=== PATIENT | female | born 1980 | race Caucasian/White ===

== ENCOUNTER 2022-03-28 11:15 | Outpatient (REF) | payer MEDICAID, SELFPAY ==
--- NOTE | ~2022-03-28 | CT_ITS ---
EXAMINATION: CT ABDOMEN AND PELVIS WITHOUT CONTRAST CLINICAL INFORMATION: Pelvic and perineal pain. COMPARISON: None. TECHNIQUE: Multidetector volumetric imaging was performed from the superior aspect of the liver through the pubic symphysis. Sagittal and coronal reformatted images were obtained on the technologist's workstation. This CT examination was performed using dose optimization techniques as appropriate, variously including the following: *Automated exposure control *Adjustment of mA and/or kV according to patient size (this includes techniques or standardized protocols for targeted exams where dose is matched to indication/reason for exam; i.e. extremities or head) *Use of iterative reconstruction technique DLP: 754 mGy-cm FINDINGS: LUNG BASES: The heart size is normal. There is a right lower lobe airspace consolidation. LIVER, GALLBLADDER, AND BILIARY TREE: The liver is normal in size, shape, and attenuation. No focal hepatic lesion or biliary ductal dilatation is present. The gallbladder has been surgically removed. PANCREAS: Unremarkable. SPLEEN: Unremarkable. ADRENAL GLANDS: Unremarkable. KIDNEYS AND URETERS: The kidneys are normal in size, shape, and attenuation. No hydronephrosis, hydroureter, or calculi seen. No perinephric stranding. BLADDER: Bladder is decompressed. GASTROINTESTINAL TRACT: There is scattered stool and gas seen throughout the colon without significant distention. The small bowel loops are normal caliber. Appendix is not visualized. ABDOMINAL WALL: No significant hernia is appreciated. LYMPH NODES: There are numerous mesenteric moderate-sized lymph nodes. The largest lymph node in the right mesentery measures 1.4 cm in maximum length. Also visualized are small retroperitoneal shotty lymph nodes. VASCULAR: Unremarkable. PELVIC VISCERA: The uterus is anteverted and appears unremarkable. There is a low-lying IUD within the uterine segment/cervix. Several phleboliths are seen in bilateral adnexa. No free fluid seen. No adnexal mass or abnormal pelvic lymph nodes. OSSEOUS STRUCTURES: There are degenerative disc changes with vacuum disc phenomena L4-L5 disc levels. Mild loss of L3-L4, L1-L2 and lower dorsal spine disc levels are noted with minimal ventral spondylosis. CT/CT abdomen pelvis wo con IMPRESSION: Diffuse abnormal-appearing mesenteric lymph nodes. Unknown etiology. Anterior uterus with a low-lying IUD in the lower uterine/cervical segment. This could be causing perineal pain. Minimal constipation. Fleischner guidelines were followed.
== END 2022-03-28 11:16 | disposition home or self-care (01) ==
LOC: HO.CT 11:15
PROVIDERS: Absent Provider Family Medicine; PCP Family Medicine; Visit Provider Emergency Medicine
DX: R10.2 Pelvic and perineal pain (principal); R31.29 Other microscopic hematuria
CPT/HCPCS: 74176

== ENCOUNTER 2022-04-01 12:12 | Outpatient (REF) | payer MEDICAID, SELFPAY ==
[2022-04-01 12:23] LABS: MANUAL DIFF FLAG NO
[2022-04-01 13:05] LABS: Basophils Percent Auto 0.5 % (0-2); Eosinophils Absolute Auto 0.2 X10*3/uL (0.0-0.4); Eosinophils Percent Auto 3.9 % (0-4); Hematocrit 40.8 % (37.0-47.0); Hemoglobin 13.4 g/dl (12.0-16.0); Imm Gran Abs Auto 0.02 X10*3/uL (0.00-0.03); Imm Gran Pct Auto 0.3 % (0.0-0.4); Lymphocytes Absolute Auto 1.8 X10*3/uL (1.2-4.9); Lymphocytes Percent Auto 30.2 % (20-40); Mean Corpuscular HGB Conc 32.8 g/dl (31.0-35.0); Mean Corpuscular Hemoglobin 28.8 pg (27.0-33.0); Mean Corpuscular Volume 87.7 fL (80.0-98.0); Mean Platelet Volume 8.8 fL (9.4-12.3); Monocytes Absolute Auto 0.3 X10*3/uL (0.1-1.2); Monocytes Percent Auto 5.5 % (2-11); Neutrophils Absolute Auto 3.5 x10*3/uL (2.0-8.3); Neutrophils Percent Auto 59.6 % (45-73); Platelet Count 406 X10*3/uL (160-400); Red Blood Count 4.65 X10*6/uL (4.20-5.50); Red Cell Distribution Width 13.1 % (11.0-16.0); White Blood Count 5.9 X10*3/uL (4.8-10.8)
[2022-04-01 13:50] LABS: Alanine Aminotransferase 92 U/L (0-31); Albumin Level 4.5 g/dL (3.5-5.0); Alkaline Phosphatase 97 U/L (39-117); Anion Gap 15 (12-20); Aspartate Amino Transferase 63 U/L (5-31); Bilirubin Total 0.6 mg/dL (0.0-1.0); Blood Urea Nitrogen 13 mg/dL (9-16); Calcium 9.7 mg/dL (8.4-10.2); Carbon Dioxide 23 mmol/L (22-29); Chloride 106 mmol/L (96-108); Estimated Glomerular Filt Rate > 60; Glucose Random 119 mg/dL (60-115); Potassium 3.9 mmol/L (3.3-5.1); Sodium 140 mmol/L (135-145); Total Protein 7.9 g/dL (6.5-8.0)
[2022-04-01 13:53] LABS: TSH reflex Free T4 1.85 uIU/mL (0.32-4.0)
[2022-04-01 13:59] LABS: Lactate Dehydrogenase 199 U/L (122-220)
[2022-04-02 04:59] LABS: HIV AB/AG Nonreactive (Nonreactive); HIV Num 1 0.08 S/CO (0.00-0.99)
== END 2022-04-01 12:13 | disposition home or self-care (01) ==
LOC: HO.LAB 12:12
PROVIDERS: PCP Family Medicine; Visit Provider Family Medicine
DX: Z11.4 Encounter for screening for human immunodeficiency virus [HIV] (principal); D64.9 Anemia, unspecified; R59.1 Generalized enlarged lymph nodes; R93.89 Abnormal findings on diagnostic imaging of other specified body structures
CPT/HCPCS: 36415; 80053; 83615; 84443; 85025; 87389

== ENCOUNTER 2022-04-17 08:17 | Outpatient (REF) | payer MEDICAID, SELFPAY ==
--- NOTE | ~2022-04-17 | CT_ITS ---
EXAMINATION: CT CHEST WITH CONTRAST CLINICAL INFORMATION: Mesenteric adenopathy. Check for adenopathy in the chest. COMPARISON: CT of the abdomen March 2022 TECHNIQUE: Multidetector volumetric CT imaging of the chest was obtained after the administration of 85 mL of Omnipaque 350 intravenous contrast without immediate adverse reactions. Axial MIP volume rendering provided. Sagittal and coronal reformatted images were obtained. This CT examination was performed using dose optimization techniques as appropriate, variously including the following: *Automated exposure control *Adjustment of mA and/or kV according to patient size (this includes techniques or standardized protocols for targeted exams where dose is matched to indication/reason for exam; i.e. extremities or head) *Use of iterative reconstruction technique DLP: 252 mGy-cm FINDINGS: LUNGS: There is a 4 mm peripheral or subpleural left lower lobe nodule axial image 113 series 7. There is a 2 mm peripheral or subpleural right lower lobe nodule axial image 112 series 7. There is a 3 mm peripheral or subpleural right lower lobe nodule axial image 143 series 7. There is a 3 mm peripheral or subpleural right lower lobe nodule axial image 146 series 7. There is question of a 3 mm left lower lobe nodule axial image 163 series 7. The lungs are otherwise clear. MEDIASTINUM: There is no hilar or mediastinal lymphadenopathy. There is no internal mammary lymphadenopathy. The mediastinum is normal. PLEURA: There is no pleural effusion. No pleural mass or thickening. AXILLA: There are small bilateral axillary lymph nodes. No enlarged axillary lymph nodes or chest wall mass is seen. UPPER ABDOMEN: The gallbladder is been removed. OSSEOUS STRUCTURES: There are mild degenerative changes of the spine. CT/CT chest w con IMPRESSION: Small bilateral axillary lymph nodes. No other adenopathy seen in the chest. Small pulmonary nodules. According to the UPDATED 2017 Fleischner Society recommendations, the advised follow-up imaging for less than 6 mm solid nodule: Low risk, no chest CT follow-up and high risk, optional chest CT follow-up in one year. Fleischner guidelines were followed.
[2022-04-17] MEDS: iohexoL 350 MG/ML 100 ML INFUS..BTL IV (09:11)
== END 2022-04-17 08:18 | disposition home or self-care (01) ==
LOC: HO.CT 08:17
PROVIDERS: PCP Family Medicine; Visit Provider Internal Medicine Medical Oncology
DX: R59.0 Localized enlarged lymph nodes (principal)
CPT/HCPCS: 71260; Q9967

== ENCOUNTER 2022-04-18 10:26 | Outpatient (REF) | payer MEDICAID, SELFPAY | END 2022-04-18 10:27 | disposition home or self-care (01) | LOC: HO.MAMMO 10:26 | PROVIDERS: PCP Family Medicine; Visit Provider Family Medicine | DX: Z13.89 Encounter for screening for other disorder (principal) ==

== ENCOUNTER 2022-07-03 08:25 | Outpatient (REF) | payer MEDICAID, SELFPAY ==
--- NOTE | ~2022-07-03 | CT_ITS ---
EXAMINATION: CT ABDOMEN AND PELVIS WITH CONTRAST CLINICAL INFORMATION: Follow-up mesenteric lymphadenopathy COMPARISON: Previous CT of the abdomen and pelvis March 2022 TECHNIQUE: Multidetector volumetric images were obtained from the superior aspect of the liver through the pubic symphysis following administration 100 mL of Omnipaque 350 intravenous contrast. Sagittal and coronal reformatted images were obtained on the technologist's workstation. Oral contrast: Yes This CT examination was performed using dose optimization techniques as appropriate, variously including the following: *Automated exposure control *Adjustment of mA and/or kV according to patient size (this includes techniques or standardized protocols for targeted exams where dose is matched to indication/reason for exam; i.e. extremities or head) *Use of iterative reconstruction technique DLP: 686 mGy-cm FINDINGS: LUNG BASES: The previously identified right lower lobe pneumonia has resolved. LIVER, GALLBLADDER, AND BILIARY TREE: The liver is normal in size, shape, and attenuation. No focal hepatic lesion or biliary ductal dilatation is present. The gallbladder is unremarkable with no evidence of radiopaque gallstones, gallbladder wall thickening, or obvious pericholecystic inflammatory changes. PANCREAS: Unremarkable. SPLEEN: Unremarkable. ADRENAL GLANDS: Unremarkable. KIDNEYS AND URETERS: The kidneys are normal in size, shape, and attenuation. No hydronephrosis, hydroureter, or calculi seen. No perinephric stranding. BLADDER: Unremarkable. GASTROINTESTINAL TRACT: The small and large bowel are unremarkable. The appendix is unremarkable. ABDOMINAL WALL: No significant hernia is appreciated. LYMPH NODES: There is lymphadenopathy seen in the small bowel mesentery. Larger lymph nodes appear slightly decreased in size from March 2022. Largest lymph node measures 8 mm in short axis axial image 43 series 3 compared to 1 cm previous exam. No new adenopathy. No ascites. VASCULAR: Unremarkable. PELVIC VISCERA: The IUD is been removed. Uterus and adnexa are unremarkable. OSSEOUS STRUCTURES: There are degenerative changes of the lower lumbar spine. CT/CT abdomen pelvis w IV con IMPRESSION: Interval decrease in size in the larger small bowel mesentery lymph nodes. Resolved right lower lobe pneumonia. Fleischner guidelines were followed.
[2022-07-03] MEDS: iohexoL 350 MG/ML 100 ML INFUS..BTL IV (11:14)
[2022-07-03] MEDS: Barium Sulfate Oral (Berry) 450 ML ORAL.SUSP 900 ML PO (11:15)
== END 2022-07-03 08:26 | disposition home or self-care (01) ==
LOC: HO.CT 08:25
PROVIDERS: PCP Family Medicine; Visit Provider Internal Medicine Medical Oncology
DX: R59.0 Localized enlarged lymph nodes (principal)
CPT/HCPCS: 74177; Q9967

== ENCOUNTER 2022-07-18 10:37 | Outpatient (REF) | payer MEDICAID, SELFPAY ==
--- NOTE | ~2022-07-18 | MM_ITS ---
EXAMINATION: MM SCREENING DIGITAL BREAST TOMOSYNTHESIS, BILATERAL CLINICAL INFORMATION: Screening. Asymptomatic. The lifetime risk of breast cancer based on the Tyrer-Cuzick Model is 8%. COMPARISON: Outside mammography: 07/16/2021, 07/11/2020 ([place]) TECHNIQUE: Digital breast tomosynthesis is performed in both the craniocaudal and mediolateral oblique views along with computer-aided detection (CAD). Synthesized 2D images are generated from the tomosynthesis. FINDINGS: There are scattered areas of fibroglandular density (ACR BI-RADS breast composition Category b). There are no significant masses, abnormal calcifications, or other abnormalities. Parenchymal pattern is similar to prior outside exams. No developing density or architectural abnormality. The axilla and skin contours are unremarkable. MM/MM tomosynthesis screening BI IMPRESSION: No mammographic evidence of malignancy. ASSESSMENT: BI-RADS 1: Negative RECOMMENDATION: Routine annual mammography screening. This patient's information was entered into a reminder system with a target due date for their next mammogram.
== END 2022-07-18 10:38 | disposition home or self-care (01) ==
LOC: HO.MAMMO 10:37
PROVIDERS: Visit Provider Family Medicine
DX: Z12.31 Encounter for screening mammogram for malignant neoplasm of breast (principal)
CPT/HCPCS: 77063; 77067

== ENCOUNTER 2023-02-27 11:24 | Outpatient (REF) | payer MEDICAID, SELFPAY ==
--- NOTE | ~2023-02-27 | XR_ITS ---
EXAMINATION: XR CHEST CLINICAL INFORMATION: Chest discomfort COMPARISON: Previous chest CT from 2021 TECHNIQUE: 2 views of the chest were obtained. FINDINGS: No significant abnormality is noted involving the heart, lungs, mediastinum, bony thorax or soft tissues. Mild degenerative changes of the spine. XR/XR chest 2V IMPRESSION: No evidence for acute disease in the chest.
== END 2023-02-27 11:25 | disposition home or self-care (01) ==
LOC: HO.XRAY 11:24
PROVIDERS: PCP Family Medicine; Visit Provider Family Medicine
DX: R07.89 Other chest pain (principal)
CPT/HCPCS: 71046

== ENCOUNTER 2023-08-16 10:11 | Outpatient (REF) | payer MEDICAID, SELFPAY | END 2023-08-16 10:12 | disposition home or self-care (01) | LOC: HO.MAMMO 10:11 | PROVIDERS: PCP Family Medicine; Visit Provider Family Medicine | DX: Z12.31 Encounter for screening mammogram for malignant neoplasm of breast (principal) | CPT/HCPCS: 77063; 77067 ==

== ENCOUNTER → 2023-08-16 10:30 | Outpatient (BNV) | payer MEDICAID, SELFPAY | PROVIDERS: PCP Family Medicine; Visit Provider Radiology Diagnostic Radiology | DX: Z12.31 Encounter for screening mammogram for malignant neoplasm of breast (principal) | CPT/HCPCS: 77063; 77067 ==

== ENCOUNTER 2024-08-21 10:12 | Outpatient (REF) | payer MEDICAID, SELFPAY ==
--- NOTE | ~2024-08-21 | MM_ITS ---
EXAMINATION: MM SCREENING DIGITAL BREAST TOMOSYNTHESIS, BILATERAL CLINICAL INFORMATION: Screening. Asymptomatic. COMPARISON: Mammography: Comparison is made with available priors TECHNIQUE: Digital breast mammography with tomosynthesis is performed in both the craniocaudal and mediolateral oblique views along with computer-aided detection (CAD). FINDINGS: There are scattered areas of fibroglandular density (ACR BI-RADS breast composition Category b). There are no significant masses, abnormal calcifications, or other abnormalities. MM/MM tomosynthesis screening BI IMPRESSION: No mammographic evidence of malignancy. ASSESSMENT: BI-RADS BI-RADS 1 - Negative RECOMMENDATION: Routine annual mammography screening. 1 year F/U This examination should not preclude the clinical evaluation of a suspicious palpable abnormality. This patient's information was entered into a reminder system with a target due date for their next mammogram. Electronically signed by: Mary Lou Becker DO 08/31/2024 08:48 AM MELISA
== END 2024-08-21 10:13 | disposition home or self-care (01) ==
LOC: HO.MAMMO 10:12
PROVIDERS: PCP Family Medicine; Visit Provider Family Medicine
DX: Z12.31 Encounter for screening mammogram for malignant neoplasm of breast (principal)
CPT/HCPCS: 77063; 77067

== ENCOUNTER → 2024-08-21 10:15 | Outpatient (BNV) | payer MEDICAID, SELFPAY | PROVIDERS: PCP Family Medicine; Visit Provider Internal Medicine | DX: Z12.31 Encounter for screening mammogram for malignant neoplasm of breast (principal) | CPT/HCPCS: 77063; 77067 ==

== ENCOUNTER 2025-07-13 11:15 | Outpatient (REF) | payer MEDICAID, SELFPAY ==
[2025-07-13 13:30] LABS: Hematocrit 36.4 % (37.0-47.0); Hemoglobin 11.4 g/dl (12.0-16.0); Mean Corpuscular HGB Conc 31.3 g/dl (31.0-35.0); Mean Corpuscular Hemoglobin 26.5 pg (27.0-33.0); Mean Corpuscular Volume 84.5 fL (80.0-98.0); NRBC Abs Auto 0.000 X10*3/uL (0.0-0.012); NRBC Pct Auto 0.0 /100WBC (0.0-0.2); Platelet Count 359 X10*3/uL (160-400); Red Blood Count 4.31 X10*6/uL (4.20-5.50); White Blood Count 6.9 X10*3/uL (4.8-10.8)
[2025-07-13 13:51] LABS: Alanine Aminotransferase 22 U/L (0-31); Albumin Level 4.3 g/dL (3.5-5.0); Alkaline Phosphatase 81 U/L (39-117); Anion Gap 10 (12-20); Aspartate Amino Transferase 31 U/L (5-31); Blood Urea Nitrogen 12 mg/dL (9-16); Calcium 9.5 mg/dL (8.4-10.2); Carbon Dioxide 27 mmol/L (22-29); Chloride 109 mmol/L (96-108); Cholesterol 231 mg/dL (<200); Estimated Glomerular Filt Rate > 60; HDL Cholesterol 42 mg/dL (>40); Potassium 4.6 mmol/L (3.3-5.1); Sodium 141 mmol/L (135-145); Total Protein 7.6 g/dL (6.5-8.0); Triglycerides 121 mg/dL (<150)
--- OUTSIDE RECORDS SUMMARY | 2025-07-13 14:27 | XMS_ITS | Encounter Summary ---
Author Organization [employer] Address [address] [facility] 7 [place] [address] Care Team Providers Care Desk Clerk Name Role Phone Sugey Mosley MD Primary Care Provider [phone]- [phone] Reason for Visit * Reason Onset Date Comments Appointment Request 03/16/2025 Encounter Details Date Type Department Care Team ([facility] st Contact Info) Description 03/16/2025 Telephone [facility] [address] [place], [place] [phone] Sugey Mosley MD [address] [place] [address] Appointment Request Social History Tobacco Use Types Packs/Day Years Used Date Smoking Tobacco: Never Smokeless Tobacco: Never Depression Answer Date Recorded Patient Health Questionnaire-9 Score 0 02/27/2023 Housing Stability Answer Date Recorded What is your housing situation today? I have [employer] [place] 08/25/[address] you li ve. Do you have problems with any of the following? None of the above 08/25/2023 Food Insecurity Answer Date Recorded Within the past 12 months, y ou worried that your food would run out before you got money to buy more: Never True 08/25/2023 Within the past 12 months,th e food you bought just didn't last and you didn't have enough money to get more: Never True Transportation Answer Date Recorded In the past 12 months, has l ack of transportation kept you from medical appts, meetings, work or from getting things needed for daily living? No 08/25/2023 Utilities Answer Date Recorded In the past 12 months, has t he electric, gas, oil or water company threatened to shut off services in your home? No 08/25/2023 Depression Answer Date Recorded Patient Health Questionnaire-2 Score 0 02/27/2023 Comments Unknown Sex and Gender Information Value Date Recorded Sex Assigned at Female 08/26/2022 10:15 AM EDT Legal Sex Female 10:15 AM EDT Gender Identity Female 08/26/2022 10:15 AM EDT Sexual Orientation Don't know 08/26/2022 10 :15 AM EDT documented as of this encounter Miscellaneous Notes * Telephone Encounter - Angelina [place] - 03/16/2025 9:37 AM EDT Tc from pt requesting schedule pe appointment with pcp. documented in this encounter Plan of Treatment Upcoming Encounters Date Type Department Care Team (Late st Contact Info) Description 07/18/2025 9:15 AM EDT Office Visit [facility] [address] [place] [address] Sugey Mosley MD [address] [place] [address] documented as of this encounter Visit Diagnoses Not on filedocumented in this encounter Additional Health Concerns Assessment Noted Time PHQ-9 Depression Total Score: 0 02/28/20 23 9:55 AM EDT documented as of this encounter Care Teams Desk Clerk Relationship Specialty Start Date End Date Sugey Mosley MD [address] [place] [address] PCP - General Family Medicine 10/27/18 documented as of this encounter
--- OUTSIDE RECORDS SUMMARY | 2025-07-13 14:27 | XMS_ITS | Encounter Summary ---
Author Organization [employer] Address [address] [place] [address] 7 [place] [address] Care Team Providers Care Sole Tacker Name Role Phone Sugey Mosley MD Primary Care Provider +1- [phone] Reason for Visit * Reason Onset Date Comments Appointment Request 02/04/2023 Encounter Details Date Type Department Care Team (Late st Contact Info) Description 02/04/2023 Telephone [facility] [address] [place] [address] Sugey Mosley MD [address] [place] [address] Appointment Request Social History Tobacco Use Types Packs/Day Years Used Date Smoking Tobacco: Never Assessed Comments Unknown Sex and Gender Information Value Date Recorded Sex Assigned at Female 08/26/2022 10:15 AM EDT Legal Sex Female 10:15 AM EDT Gender Identity Female 08/26/2022 10:15 AM EDT Sexual Orientation Don't know 08/26/2022 10 :15 AM EDT documented as of this encounter Miscellaneous Notes * Telephone Encounter - Venkatesh Michael - 02/04/2023 11:23 AM EDT Tc from pt requesting to r/s appt on 02/05/23 ( 1 month F/u for weight ok per [place] ) Please contact pt at [phone] documented in this encounter Plan of Treatment Upcoming Encounters Date Type Department Care Team (Late st Contact Info) Description 07/18/2025 9:15 AM EDT Office Visit [facility] [address] [place] [address] Sugey Mosley MD [address] [place] [address] documented as of this encounter Visit Diagnoses Not on filedocumented in this encounter Care Teams Sole Tacker Relationship Specialty Start Date End Date Sugey Mosley MD [address] [place] [address] PCP - General Family Medicine 10/27/18 documented as of this encounter
--- OUTSIDE RECORDS SUMMARY | 2025-07-13 14:27 | XMS_ITS | Encounter Summary ---
Author Organization [facility] Address [address] [place] [address] 7 [place] [address] Care Team Providers Care Tank Pumper Name Role Phone Sugey Mosley MD Primary Care Provider +1- [phone] Encounter Details Date Type Department Care Team (Late st Contact Info) Description 12/18/2022 Orders Only [facility] [address] [place] [phone] Kenzie Haji MD [address] [place] [address] [phone] Vision problem (Primary Dx) Social History Tobacco Use Types Packs/Day Years Used Date Smoking Tobacco: Never Assessed Comments Unknown Sex and Gender Information Value Date Recorded Sex Assigned at Female 08/26/2022 10:15 AM EDT Legal Sex Female 10:15 AM EDT Gender Identity Female 08/26/2022 10:15 AM EDT Sexual Orientation Don't know 08/26/2022 10 :15 AM EDT documented as of this encounter Plan of Treatment Upcoming Encounters Date Type Department Care Team (Late st Contact Info) Description 07/18/2025 9:15 AM EDT Office Visit [facility] [address] [place] [address] [phone] Sugey Mosley MD [address] [place] [address] [phone] documented as of this encounter Visit Diagnoses Diagnosis Vision problem- Primary Problems with sight Encounter for HCV screening test for low risk patient- Primary Dyslipidemia Other and unspecified hyperlipidemia Lymphadenopathy Enlargement of lymph nodes Elevated TSH Other abnormal blood chemistry Vitamin D deficiency documented in this encounter Care Teams Tank Pumper Relationship Specialty Start Date End Date Sugey Mosley MD [address] [place] [phone] PCP - General Family Medicine 10/27/18 documented as of this encounter
--- OUTSIDE RECORDS SUMMARY | 2025-07-13 14:27 | XMS_ITS | Encounter Summary ---
Author Organization [facility] Address [address] [place] [address] 7 [place] [address] Care Team Providers Care Instructor Adjunct Surgical Technician Name Role Phone Sugey Mosley MD Primary Care Provider +1- [phone] Encounter Details Date Type Department Care Team (Late st Contact Info) Description 10/31/2022 Abstract [facility] [address] [place] [phone] Sugey Mosley MD [address] [place] [address] [phone] Social History Tobacco Use Types Packs/Day Years [...] Description 07/18/2025 9:15 AM EDT Office Visit [facility] [address] [place] [address] [phone] Sugey Mosley MD [address] [place] [phone] documented as of this encounter Procedures Procedure Name Priority Date/Time Associated Diagnosis Comments CBC AND DIFFERENTIAL - WAM AND NON-WAM Routine 07/19/2022 HIV-1 ANTIBODY, EIA Routine 07/19/2022 TSH Routine 07/19/2022 HEMOGLOBIN A1C Routine 07/19/2022 HEPATIC FUNCTION PANEL Routine 07/19/2022 LIPID PANEL, STANDARD Routine 07/19/2022 BASIC METABOLIC PANEL Routine 07/19/2022 documented in this encounter Results * HIV-1 antibody, EIA (07/19/2022) Pathologist [facility] External HIV-1 Antibody None Detected Blood Venous blood specimen / Unknown Result [facility] MD LAB BLOOD ORDERABLES Annie l Result * TSH (07/19/2022) Pathologist [facility] TSH 5.31 4.00 - 5.40 mIU/L Blood Venous blood specimen / Unknown Result [facility] MD LAB BLOOD ORDERABLES Annie l Result * Hemoglobin A1c (07/19/2022) Pathologist [facility] Hemoglobin A1C 5.3 4.0 - 6.0 % Blood Venous blood specimen / Unknown Result [facility] MD LAB BLOOD ORDERABLES Annie l Result * Hepatic Function Panel (07/19/2022) Pathologist [facility] Alkaline Phosphatase 65 U/L ALT (SGPT) 21 7 - 35 U/L AST 26 13 - 35 U/L Total Bilirubin 0.6 0.1 - 1.4 mg/dL Blood Venous blood specimen / Unknown Result [facility] LAB BLOOD ORDERABLES Annie l Result * (ABNORMAL) Lipid Panel, Standard (07/19/2022) Pathologist [facility] Triglycerides 233(A) 40 - 160 mg/dL Cholesterol 237(A) 0 - 200 mg/dL HDL Cholesterol 36 35 - 70 mg/dL LDL Cholesterol 162 mg/dL Blood Venous blood specimen / Unknown [facility] Provider LAB BLOOD ORDERABLES Annie l Result * Basic Metabolic Panel (07/19/2022) Glucose 90 mg/dL BUN 14 4 - 21 mg/dL Creatinine 0.8 0.5 - 1.1 mg/dL Potassium 4.3 3.4 - 5.5 mmol/L Sodium 137 137 - 147 mmol/L Blood Venous blood specimen / Unknown Result [facility] Provider LAB BLOOD ORDERABLES Annie l Result * CBC and differential (07/19/2022) Hemoglobin 13.4 12.0 - 16.0 g/dL Hematocrit 40 36 - 46 % Platelets 363 150 - 399 10*3/uL Auto WBC 8.1 3.3 - 10.0 10*3/uL Blood Venous blood specimen / Unknown Result [facility] Provider LAB BLOOD ORDERABLES Annie l Result documented in this encounter Visit Diagnoses Not on filedocumented in this encounter Care Teams Instructor Adjunct Surgical Technician Relationship Specialty Start Date End Date Sugey Mosley MD [address] [place] [phone] PCP - General Family Medicine 10/27/18 documented as of this encounter
--- OUTSIDE RECORDS SUMMARY | 2025-07-13 14:27 | XMS_ITS | Encounter Summary ---
Author Organization [employer] Address [address] [facility] [address] [place] [address] Care Team Providers Care Architectural Draftsman Name Role Phone Sugey Mosley MD Primary Care Provider +1- [phone] Encounter Details Date Type Department Care Team (Late st Contact Info) Description 12/07/2024 Orders Only [facility] [address] [place] [address] Sugey Mosley MD [address] [place] [address] Social History Tobacco Use Types Packs/Day Years [...] Description 07/18/2025 9:15 AM EDT Office Visit [facility] [address] [place] [address] Sugey Mosley MD [address] [place] [address] documented as of this encounter Visit Diagnoses Not on filedocumented in this encounter Additional Health Concerns Assessment Noted Time PHQ-9 Depression Total Score: 0 02/28/20 23 9:55 AM EDT documented as of this encounter Care Teams Architectural Draftsman Relationship Specialty Start Date End Date Sugey Mosley MD [address] [place] [address] PCP - General Family Medicine 10/27/18 documented as of this encounter
--- OUTSIDE RECORDS SUMMARY | 2025-07-13 14:27 | XMS_ITS | Clinical Summary ---
Author Organization [employer] Address [address] [place] [address] Care Team Providers Care Revenue Research Analyst Name Role Phone Sugey Mosley MD Primary Care Provider [phone] Allergies Active Allergy Reactions Criticality Noted Date Comments Penicillins Medications ulipristal (Karla) 30 mg tablet Take 1 tablet by mouth. 07/19/2022 Active naltrexone-buPRO Pion ER (Contrave) 8-90 MG ER tablet Take 1 tab po qam for 1 week, then 1 tab po bid for 1 week, then 2 tabs po qam and 1 tab po qpm for one week. 90 tablet 3 02/27/2023 Active ibuprofen 800 MG tabletIndication s:Pain TAKE 1 TABLET BY MOUTH EVERY 6 HOURS IF NEEDED FOR MILD PAIN 60 tablet 03/16/2025 Active Active Problems Problem Noted Date Diagnosed Date Cardiac risk counseling 03/05/2024 Overview (03/05/2024): Calculated 03/05/24: Low risk The 10-year ASCVD risk score (Carol ROSAS, et al., 2019) is: 1.8% Values used to calculate the score: Age: 43 years Sex: Female Is Non- : No Diabetic: No Tobacco smoker: No Systolic Blood Pressure: 121 mmHg Is BP treated: No HDL Cholesterol: 36 mg/dL Total Cholesterol: 237 mg/dL Lab Results Component Value Date LDLCHOL 162 (H) 07/19/2022 -Tobacco cessation: not applicable -Statin therapy:N/A -Importance of moderate physical activity and nutrition interventions discussed. Preventative health care 07/28/2023 Overview (03/05/2024): -next physical exam due after 07/19/2023 -eye care facilitated by [facility] -dental home is [facility] Chest discomfort 02/27/2023 Overview (02/27/2023): Pain atypical fro cardiac. -Check EKG. -Chest x-ray. Assessment & Plan (02/27/2023 11:17 AM EDT): Pain atypical fro cardiac. Exam normal. -EKG nsr with evidence of ischemia or past infarction -Chest x-ray Dyslipidemia 12/30/2022 Overview (03/05/2024): Lab Results Component Value Date CHOL 237 (A) 07/19/2022 TRIG 233 (A) 07/19/2022 HDL 36 07/19/2022 LDL 162 07/19/2022 -continue lifestyle modification Lymphadenopathy 10/31/2022 Overview (12/30/2022): CT scan on 03/28/2022 done for acute respiratory issues incidentally noted diffuse abnormal-appearing mesenteric lymph nodes. Unknown etiology. The largest lymph node in the right mesentery measures 1.4 cm in maximum length. Also visualized are small retroperitoneal shotty lymph nodes. Pt reports crampy abdominal pain but no other concerns. -CBC, LDH, Electorpytes, LFTs, TSH, Mammo and stool cards were normal. She saw hematology and most recently CT scan on 07/03/2022 shows a decrease in size in the larger small bowel mesenteric lympth nodes. IUD was removed, right lower lobe pneumonia resolved, she will f/u with Dr. Hutchinson. Assessment & Plan (12/30/2022 11:16 AM EST): CT scan on 03/28/2022 done for acute respiratory issues incidentally noted diffuse abnormal-appearing mesenteric lymph nodes. Unknown etiology. The largest lymph node in the right mesentery measures 1.4 cm in maximum length. Also visualized are small retroperitoneal shotty lymph nodes. Pt reports crampy abdominal pain but no other concerns. -CBC, LDH, Electorpytes, LFTs, TSH, Mammo and stool cards were normal. She saw hematology and most recently CT scan on 07/03/2022 shows a decrease in size in the larger small bowel mesenteric lympth nodes. IUD was removed, right lower lobe pneumonia resolved, she will f/u with Dr. Hutchinson. Elevated TSH 10/31/2022 Overview (10/31/2022): TSH 5.31 mIU/L on 07/19/22 with normal Free T4 pf 1.0 -continue to check yearly thyroid pannel BMI 45.0-49.9, adult 10/31/2022 Assessment & Plan (02/27/2023 11:17 AM EDT): Has lost 22 lbs with lifestyle changes, rebound a bit but was due to planned vacation. Doing excellent. Has cut out soda and significant decreased coffee. -Wegovy denied -Start Contrave 02/27/2023 -Continue lifestyle modifications Assessment & Plan (12/30/2022 11:41 AM EST): Pt has tryed multiple modalities including lifestyle modification, nutrition, and guidance. She has tried Buprorion with limited success. Risk factors include dyslipidemia, SOB on exertion. Semaglutide risks and benefits discussed. F/u 1 month if medication is approved through insurance. Will do prior authorization if required. Resolved Problems Problem Noted Date Diagnosed Date Resolved Date Dysthymia 10/31/2022 02/28/2023 Overview (12/30/2022): Pt high risk for depression given family stressors. We are starting bupropion 100mg BID to help with dysthymia and possible weight lose. Will f/u in 3 months. Assessment & Plan (12/30/2022 11:16 AM EST): Pt high risk for depression given family stressors. We are starting bupropion 100mg BID to help with dysthymia and possible weight lose. Will f/u in 3 months. 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); RPE mottling of macula; Raised intraocular pressure of both eyes; Presbyopia of both eyes 06/13/2025 Travel from Last 3 Months Immunizations Immunization Administration Dates Next Due Hep A / Hep B 07/16/2016 Influenza injectable quadriv alent IIV4 with preservative 11/23/2015 Influenza injectable quadriv alent preservative free 07/19/2022 Pfizer Covid-19 Vaccine 12+ 12/11/2021,,12/05/2020 Tdap 04/27/2014 Social History Tobacco Use Types Packs/Day Years Used Date Smoking Tobacco: Never Smokeless Tobacco: Never Tobacco Cessation:Counseling Given: Not Answered Depression Answer Date Recorded Patient Health Questionnaire-9 Score 0 02/27/2023 Housing Stability Answer Date Recorded What is your housing situation today? I have [employer] far[place] 07/11/[address] you li ve. Do you have problems with any of the following? None of the above 07/11/2025 Food Insecurity Answer Date Recorded Within the past 12 months, y ou worried that your food would run out before you got money to buy more: Never True 07/11/2025 Within the past 12 months,th e food you bought just didn't last and you didn't have enough money to get more: Never True Transportation Answer Date Recorded In the past 12 months, has l ack of transportation kept you from medical appts, meetings, work or from getting things needed for daily living? Yes, it has kept me from non-medical meetings, work, or getting things that I need 07/11/2025 Utilities Answer Date Recorded In the past 12 months, has t he electric, gas, oil or water company threatened to shut off services in your home? No 07/11/2025 Depression Answer Date Recorded Patient Health Questionnaire-2 Score 0 02/27/2023 Internet Access Answer Date Recorded Internet Access Q1 Yes 07/11/2025 Internet Access Q2 Not on file 07/11/2025 Comments Unknown Sex and Gender Information Value Date Recorded Sex Assigned at Female 08/26/2022 10:15 AM EDT Legal Sex Female 10:15 AM EDT Gender Identity Female 08/26/2022 10:15 AM EDT Sexual Orientation Don't know 08/26/2022 10 :15 AM EDT Last Filed Vital Signs Vital Sign Reading Time Taken Comments Blood Pressure 121/71 02/27/2023 9:54 AM EDT Pulse 84 02/27/2023 9:54 AM EDT Temperature 37.1 C (98.7 F) 02/27/2023 9:54 AM EDT Respiratory Rate 20 02/27/2023 9:54 AM EDT Oxygen Saturation 99% 02/27/2023 9:54 AM EDT Inhaled Oxygen Concentration - - Weight 108 kg (237 lb) 02/27/2023 9:54 AM EDT Height 157.5 cm (5' 2 ) 02/27/2023 9:54 AM EDT Body Mass Index 43.35 02/27/2023 9:54 AM EDT Plan of Treatment Upcoming Encounters Date Type Department Care Team (Late st Contact Info) Description 07/18/2025 9:15 AM EDT Office Visit [facility] [address] [place] [address] Sugey Mosley MD [address] [place] [address] Health Maintenance Due Date Last Done Comments CT Colonography 1980 Colonoscopy 1980 Colorectal Cancer Screening 1980 FIT DNA/Cologuard 1980 FIT 1980 FOBT 1980 Sigmoidoscopy 1980 Disability Screening 1980 Alcohol/Substance Use Screening 1992 Family Planning (PISQ) 1995 HPV Vaccines (1 - 3-dose series) 1995 Hepatitis C Screening 1998 Hepatitis B Vaccines (2 of 3 - Hep B Twinrix 3-dose series) 08/13/2016 07/16/2016 Depression Screening 02/28/2024 02/27/2023, 02/28/20 DTaP/Tdap/Td Vaccines (2 - Td or Tdap) 04/27/2024 04/27/2014 COVID-19 Vaccine ( - season) 2025 09/06/2022, 12/11/2021, 12/26/2020, Additional history exists Influenza Vaccine (#1) 2025 07/19/2022, 2015 Pap Smear 07/19/2025 07/19/2022, 07/19/2022 Tobacco Screening 07/05/2026 07/05/2025 SDOH Screening 07/11/2026 07/11/2025 Mammogram 08/21/2026 08/21/2024, 07/28, 07/18/2022, Additional history exists Cervical Cancer Screening 07/19/2027 HPV/Cotest 07/19/2027 07/19/2022, 07/19/2022 Zoster Vaccines (1 of 2) 2030 Lipid Panel 07/13/2030 07/13/2025, 06/28, 07/19/2022 RSV Patients and Patients Aged 60 years or older (1 - 1-dose 75+ series) 2055 Hepatitis A Vaccines Aged Out 07/16/2016 No long er eligible based on patient's age to complete this topic HIV Screening Completed 07/19/2022, 06/28, 04/01/2022 HIB Vaccines Aged Out No longer eligi ble based on patient's age to complete this topic IPV Vaccines Aged Out No longer eligi ble based on patient's age to complete this topic Meningococcal B Vaccine Aged Out No l onger eligible based on patient's age to complete this topic Meningococcal Vaccine Aged Out No rubio paul eligible based on patient's age to complete this topic Pneumococcal Vaccine: Pediatrics (0 to 5 Years) and At-Risk Patients (6 to 49) Years Aged Out No longer eligible based on patient's age to complete this topic RSV under 20 months Aged Out No longe r eligible based on patient's age to complete this topic Rotavirus Vaccines Aged Out No longer eligible based on patient's age to complete this topic Procedures Procedure Name Priority Date/Time Associated Diagnosis Comments VITAMIN D,25-OH,TOTAL,IA Routine 07/13/2025 11:45 AM EDT Vitamin D deficiency TSH W/REFLEX TO FT4 Routine 07/13/2025 1 1:45 AM EDT Elevated TSH CBC Routine 07/13/2025 11:45 AM EDT Lymphadenopathy BASIC METABOLIC PANEL Routine 07/13/2025 11:45 AM EDT Dyslipidemia LIPID PANEL, STANDARD Routine 07/13/2025 11:45 AM EDT Dyslipidemia HEPATIC FUNCTION PANEL Routine 11:45 AM EDT Dyslipidemia OCT, RETINA - OU - BOTH EYES Routine 06/13/2025 3:00 PM EDT RPE mottling of macula BI MAMMOGRAM SCREENING TOMOSYNTHESIS BILATERAL Routine 08/21/2024 10:15 AM EDT HIV-1 ANTIBODY, EIA Routine 07/19/2022 HPV HIGH RISK PCR Routine 07/19/2022 12: 00 AM EDT PAP SMEAR Routine 07/19/2022 12:00 AM EDT from Last 3 Months or Most Recently Relevant to Health Maintenance Results * (ABNORMAL) Vitamin D, 25-Hydroxy, Total, Immunoassay (07/13/2025 11:45 AM EDT) Vitamin D 25-OH Total 29.0(L) >30 ng/mL [facility] Comment: Health Based Reference Values*< 20 ng/mL [id number] ng/mL Insufficient> 30 ng/mL Sufficient*Minesh OLSON. N Engl J Med. 2007;357:266-280There is no well-established upper level of normal vitamin Dlevels. Some laboratories use 50 ng/mL as an upper limit ofnormal. However, toxicity is patient-dependent and may occurat any level. Careful correlation with the patient'spresentation is necessary and, if there is concern forvitamin D toxicity, treatment should be consideredirrespective of the serum level.Care must be taken in interpreting Vitamin D results fromdifferent laboratories and methodologies. Published datademonstrated that results from patients undergoinghemodialysis may show a negative bias when tested withvarious automated 25-OH vitamin D assays when compared toLC-MS/MS.When testing samples from patients whose predominant form ofVitamin D is Vitamin D2, such as patients receiving VitaminD2 supplementation, results that are subtherapeutic shouldbe confirmed with another method such as LC-MS/MS. Blood Venous blood specimen / Unknown 07/13/2025 11:45 AM EDT 07/13/2025 1:16 PM EDT Sugey Mosley MD LAB BLOOD ORDERABLES Final Result Performing Organization Address [facility]/ZIP Co de Phone Number [facility] [address] [place] [phone] * TSH W/Reflex to FT4 (07/13/2025 11:45 AM EDT) TSH reflex Free T4 2.45 0.32 - 4.0 uIU/mL [facility] Blood Venous blood specimen / Unknown 07/13/2025 11:45 AM EDT 07/13/2025 1:16 PM EDT Sugey Mosley MD LAB BLOOD ORDERABLES Final Result Performing Organization Address City/[facility]/ZIP Co de Phone Number [facility] [address] [place] [address] [phone] * (ABNORMAL) CBC (07/13/2025 11:45 AM EDT) White Blood Count 6.9 4.8 - 10.8 X10*3/uL [facility] Red Blood Count 4.31 4.20 - 5.50 X10*6/uL [facility] Hemoglobin 11.4(L) 12.0 - 16.0 g/dl [facility] Hematocrit 36.4(L) 37.0 - 47.0 % [facility] Mean Corpuscular Volume 84.5 80.0 - 98.0 fL [facility] Mean Corpuscular Hemoglobin 26.5(L) 27.0 - 33.0 pg [facility] Mean Corpuscular HGB Conc 31.3 31.0 - 35.0 g/dl [facility] Red Cell Distribution Width 15.3 11.0 - 16.0 % [facility] Platelet Count 359 160 - 400 X10*3/uL [facility] Mean Platelet Volume 10.0 9.4 - 12.3 fL [facility] NRBC Pct Auto 0.0 0.0 - 0.2 /100WBC [facility] NRBC Abs Auto 0.000 0.0 - 0.012 X10*3/uL [facility] Blood Venous blood specimen / Unknown 07/13/2025 11:45 AM EDT 07/13/2025 1:16 PM EDT us Sugey Mosley MD LAB BLOOD ORDERABLES Final Result [facility] [address] [place] [phone] * Hepatic Function Panel (07/13/2025 11:45 AM EDT) Bilirubin, Total 0.3 0.0 - 1.0 mg/dL [facility] Bilirubin, Direct 0.1 0.0 - 0.5 mg/dL [facility] Aspartate Amino Transferase 31 5 - 31 U/L [facility] Alanine Aminotransferase 22 0 - 31 U/L [facility] Total Protein 7.6 6.5 - 8.0 g/dL [facility] Albumin Level 4.3 3.5 - 5.0 g/dL [facility] Alkaline Phosphatase 81 39 - 117 U/L [facility] Blood Venous blood specimen / Unknown 07/13/2025 11:45 AM EDT 07/13/2025 1:16 PM EDT Sugey Mosley MD LAB BLOOD ORDERABLES Final Result Performing Organization Address [facility] Co de Phone Number [facility] [address] [place] [phone] * (ABNORMAL) Lipid Panel, Standard (07/13/2025 11:45 AM EDT) Triglycerides 121 <150 mg/dL [facility] Comment:Desirable Triglyceri de: less than 150 mg/dLBorderline High Triglyceride 150-199 mg/dLHigh Triglyceride: 200-499 mg/dLVery High Triglyceride: greater than or equal to 5OO mg/dL Cholesterol 231(H) <200 mg/dL [facility] Comment:Desirable Cholestero l: less than 200 mg/dLBorderline High Cholesterol: 200-239 mg/dLHigh Cholesterol: greater than 239 mg/dL LDL Cholesterol Calculated 165(H) <100 mg/dL [facility] Comment:Desirable LDL: less than 100 mg/dLNear Optimal/Above Optimal LDL: 110- 129 mg/dLBorderline High LDL: 130-159 mg/dLHigh LDL: 160-189 mg/dLVery High LDL: greater than or equal to 190 mg/dL HDL Cholesterol 42 >40 mg/dL [facility] Comment:Desirable HDL: great er than 40 mg/dL Note: This HDL assay may give artificially low results in patients with liver disease. Blood Venous blood specimen / Unknown 07/13/2025 11:45 AM EDT 07/13/2025 1:16 PM EDT Sugey Mosley MD LAB BLOOD ORDERABLES Final Result Performing Organization Address City/[facility]/ZIP Co de Phone Number [facility] [address] [place] [phone] * (ABNORMAL) Basic Metabolic Panel (07/13/2025 11:45 AM EDT) Sodium 141 135 - 145 mmol/L [facility] Potassium 4.6 3.3 - 5.1 mmol/L [facility] Chloride 109(H) 96 - 108 mmol/L [facility] Carbon Dioxide 27 22 - 29 mmol/L [facility] Anion Gap 10(L) 12 - 20 [facility] Urea Nitrogen (BUN) 12 9 - 16 mg/dL [facility] Creatinine, Serum 0.70 0.5 - 1.4 mg/dL [facility] Estimated Glomerular Filt Rate >60 [facility] Comment:Chronic Kidney Disea se: Estimated GFR < 60 mL/min/[id number] Kidney Disease: Estimated GFR < 15 mL/min/1.73m2 Glucose 98 60 - 115 mg/dL [facility] Calcium 9.5 8.4 - 10.2 mg/dL [facility] Blood Venous blood specimen / Unknown 07/13/2025 11:45 AM EDT 07/13/2025 1:16 PM EDT Sugey Mosley MD LAB BLOOD ORDERABLES Final Result [facility] [address] [place] [phone] * OCT, Retina - OU - Both Eyes (06/13/2025 3:00 PM EDT) Narrative Omayra Atkins, OD - 07/06/2025 1:24 PM EDT Images from the original result were not included. OCT [employer] Optical Coherence Tomography Interpretation Report Measurements: OD OS Macula Thickness 232 microns 231 microns Test findings: OD: Normal foveal contour, no cystoid macular edema, no retinal pigment epithelium disruption, no subretinal fluid OS: Normal foveal contour, no cystoid macular edema, no retinal pigment epithelium disruption, no subretinal fluid Impression and Plan: Retinal pigment epithelium hypopigmentation noted on fundus exam in the left eye. It is not significant enough to be noted on OCT today. No treatment is necessary. Will monitor in 1 year. Omayar Atkins OD OPHTH TOMOGRAPHY Final Result * BI Mammogram Screening Tomosynthesis Bilateral (08/21/2024 10:15 AM EDT) Anatomical Region Laterality Modality Breast Bilateral Mammography 08/21/2024 10:1 5 AM EDT Narrative 08/31/2024 8:50 AM EST [facility] [address] [place] [address] Mammography Report Signed Patient: Citlaly Rodriges MR#: [id number] : 1980 Acct:[id number] Age/Sex: 44 / F ADM Date: 08/21/24 Loc: HO.MAMMO Attending Dr: Sugey Mosley MD Ordering Physician: Sugey Mosley MD Results: 1N egative Date of Service: 08/21/24 Follow Up: 1 Year From Orig ina Mammogram Procedure(s): MM tomosynthesis screening BI Accession Number(s): [id number] cc: Sugey Mosley MD EXAMINATION: MM SCREENING DIGITAL BREAST TOMOSYNTHESIS, BILATERAL CLINICAL INFORMATION: Screening. Asymptomatic. COMPARISON: Mammography: Comparison is made with available priors TECHNIQUE: Digital breast mammography with tomosynthesis is performed in both the craniocaudal and mediolateral oblique views along with computer-aided detection (CAD). FINDINGS: There are scattered areas of fibroglandular density (ACR BI-RADS breast composition Category b). There are no significant masses, abnormal calcifications, or other abnormalities. MM/MM tomosynthesis screening BI IMPRESSION: No mammographic evidence of malignancy. ASSESSMENT: BI-RADS BI-RADS 1 - Negative RECOMMENDATION: Routine annual mammography screening. 1 year F/U This examination should not preclude the clinical evaluation of a suspicious palpable abnormality. This patient's information was entered into a reminder system with a target due date for their next mammogram. Electronically signed by: Mary Lou Becker DO 08/31/2024 08:48 AM EST Dictated By: Mary Lou Becker DO Signed By: <Electronically signed by Mary Lou Becker DO in OV> 08/31/24 0848 DD/ 1015 TD/TT: 08/21/24 1027 Single Ending Machine Operator: Procedure Note Donotuseinterpreter, Image - 08/31/2024 [facility] [address] [place], [place] [address] Mammography Report Signed Patient: Jyothi Rodriges#: [id number] : 1980Acct:[id number] Age/Sex: 44 / FADM Date: 08/21/24 Loc: HO.MAMMO Attending Dr: Sugey Mosley MD Ordering Physician: Sugey Mosley MDResults: 1N egative Date of Service: 08/21/24Follow Up: 1 Year From Orig inal Mammogram Procedure(s): MM tomosynthesis screening BI Accession Number(s): [id number] cc: Sugey Mosley MD EXAMINATION: MM SCREENING DIGITAL BREAST TOMOSYNTHESIS, BILATERAL CLINICAL INFORMATION: Screening. Asymptomatic. COMPARISON: Mammography: Comparison is made with available priors TECHNIQUE: Digital breast mammography with tomosynthesis is performed in both the craniocaudal and mediolateral oblique views along with computer-aided detection (CAD). FINDINGS: There are scattered areas of fibroglandular density (ACR BI-RADS breast composition Category b). There are no significant masses, abnormal calcifications, or other abnormalities. MM/MM tomosynthesis screening BI IMPRESSION: No mammographic evidence of malignancy. ASSESSMENT: BI-RADS BI-RADS 1 - Negative RECOMMENDATION: Routine annual mammography screening. 1 year F/U This examination should not preclude the clinical evaluation of a suspicious palpable abnormality. This patient's information was entered into a reminder system with a target due date for their next mammogram. Electronically signed by: Mary Lou Becker DO 08/31/2024 08:48 AM EST Dictated By: Mary Lou Becker DO Signed By: <Electronically signed by Mary Lou Becker DO in OV> 08/31/24 0848 DD/ 1015 TD/TT: 08/21/24 1027 Single Ending Machine Operator: us Sugey Mosley MD IMG BI PROCEDURES Final Re sult * HPV High Risk PCR (07/19/2022 12:00 AM EDT) Swab Cervical swab / Unknown Historical Provider LAB MICROBIOLOGY - GENERA L ORDERABLES Final Result Performing Organization Address [facility]/ZIP Co de Phone Number [facility] [address] [place] [phone] * HIV-1 antibody, EIA (07/19/2022) External HIV-1 Antibody None Detected Blood Venous blood specimen / Unknown Historical Provider LAB BLOOD ORDERABLES Annie l Result * Pap Smear (07/19/2022 12:00 AM EDT) Swab Sugey Mosley MD LAB CYTOLOGY ORDERABLES Fi nal Result Performing Organization Address [facility] Co de Phone Number [facility] [address] [place] [phone] from Last 3 Months or Most Recently Relevant to Health Maintenance Insurance [facility] C3 Care Teams Revenue Research Analyst Relationship Specialty Start Date End Date Stephens, MD Sugey [address] [place] [phone] PCP - General Family Medicine 10/27/18
--- OUTSIDE RECORDS SUMMARY | 2025-07-13 14:27 | XMS_ITS | Encounter Summary ---
Author Organization [employer] Address [address] [facility] 7 [place] [address] Care Team Providers Care Gas Welder Apprentice Name Role Phone Sugey Mosley MD Primary Care Provider +1- [phone] Reason for Visit * Reason Comments Pre-visit Planning SDOH screening negat rene and tobacco screening negative Encounter Details Date Type Department Care Team ([facility] st Contact Info) Description 07/11/2025 Patient Outreach [facility] MEDICINE [address] [place] [address] Sugey Mosley MD [address] [place] [address] Pre-visit Planning (SDOH screening negative and tobacco screening negative) Social History Tobacco Use Types Packs/Day Years Used Date Smoking Tobacco: Never Smokeless Tobacco: Never Depression Answer Date Recorded Patient Health Questionnaire-9 Score 0 02/27/2023 Housing Stability Answer Date Recorded What is your housing situation today? I have campbell giana 07/11/[address] you li [...] AM EDT documented as of this encounter Progress Notes * Aminah Child - 07/11/2025 9:42 AM EDT CC Aminah placed successful outbound call to patient for pre-visit planning. Patient name and confirmed. Patient confirms appt date and time, and has transportation. Biggest concern for appointment at this time is none Patient advised to bring to appointment a photo id and insurance card. Appropriate screenings completed in anticipation of appointment. documented in this encounter Plan of Treatment Upcoming Encounters Date Type Department Care Team (Late st Contact Info) Description 07/18/2025 9:15 AM EDT Office Visit [facility] MEDICINE [address] [place] [phone] Sugey Mosley MD [address] [place] [phone] documented as of this encounter Visit Diagnoses Not on filedocumented in this encounter Additional Health Concerns Assessment Noted Time PHQ-9 Depression Total Score: 0 02/28/20 23 9:55 AM EDT documented as of this encounter Care Teams Gas Welder Apprentice Relationship Specialty Start Date End Date Sugey Mosley MD [address] [place] [phone] PCP - General Family Medicine 10/27/18 documented as of this encounter
--- OUTSIDE RECORDS SUMMARY | 2025-07-13 14:27 | XMS_ITS | Encounter Summary ---
Author Organization [facility] Address [address] [place] [address] 7 [place] [address] Care Team Providers Care Orthotist Prosthetist Name Role Phone Sugey Mosley MD Primary Care Provider +1- [phone] Encounter Details Date Type Department Care Team (Late st Contact Info) Description 07/28/2023 Abstract [facility] MEDICINE [address] [place] [address] [phone] Sugey Msoley MD [address] [place] [address] [phone] Preventative health care Social History Tobacco Use Types Packs/Day Years Used Date Smoking Tobacco: Never Smokeless Tobacco: Never Depression Answer Date Recorded Patient Health Questionnaire-9 Score 0 02/27/2023 Depression Answer Date Recorded Patient Health Questionnaire-2 [...] Description 07/18/2025 9:15 AM EDT Office Visit [facility] MEDICINE [address] [place] [address] [phone] Sugey Mosley MD [address] [place] [address] [phone] documented as of this encounter Visit Diagnoses Diagnosis Preventative health care Routine general medical examination at a health care facility Encounter for HCV screening test for low risk patient- Primary Dyslipidemia Other and unspecified hyperlipidemia Lymphadenopathy Enlargement of lymph nodes Elevated TSH Other abnormal blood chemistry Vitamin D deficiency documented in this encounter Additional Health Concerns Assessment Noted Time PHQ-9 Depression Total Score: 0 02/28/20 23 9:55 AM EDT documented as of this encounter Care Teams Orthotist Prosthetist Relationship Specialty Start Date End Date Sugey Mosley MD [address] [place] [phone] PCP - General Family Medicine 10/27/18 documented as of this encounter
[2025-07-14 05:46] LABS: ~HepC Num1 0.10 S/CO (0.00-0.79); ~Hepatitis C Antibody Nonreactive (Nonreactive)
== END 2025-07-13 11:16 | disposition home or self-care (01) ==
LOC: HO.HHCL 11:15
PROVIDERS: PCP Family Medicine; Visit Provider Family Medicine
DX: Z11.59 Encounter for screening for other viral diseases (principal); R79.89 Other specified abnormal findings of blood chemistry; E78.5 Hyperlipidemia, unspecified; R59.1 Generalized enlarged lymph nodes; E55.9 Vitamin D deficiency, unspecified
CPT/HCPCS: 36415; 80048; 80061; 80076; 82306; 84443; 85027; 86803

== ENCOUNTER 2025-07-15 10:42 | Outpatient (REF) | payer MEDICAID, SELFPAY ==
--- OUTSIDE RECORDS SUMMARY | 2025-07-15 11:20 | XMS_ITS | Encounter Summary ---
Author Organization [employer] Address [address] [facility] 7t [place] [address] Care Team Providers Care Crm Functional Analyst Name Role Phone Sugey Mosley MD Primary Care Provider +1- [phone] Reason for Visit * Reason Onset Date Comments Appointment Request 03/16/2025 Encounter Details Date Type Department Care Team ([facility] st Contact Info) Description 03/16/2025 Telephone [facility] MEDICINE [address] [place], [place] [phone] Sugey Mosley MD [address] [place] [address] Appointment Request Social History Tobacco Use Types [...] Description 07/18/2025 9:15 AM EDT Office Visit [facility] MEDICINE [address] [place] [address] Sugey Mosley MD [address] [place] [address] documented as of this encounter Visit Diagnoses Not on filedocumented in this encounter Additional Health Concerns Assessment Noted Time PHQ-9 Depression Total Score: 0 02/28/20 23 9:55 AM EDT documented as of this encounter Care Teams Crm Functional Analyst Relationship Specialty Start Date End Date Sugey Mosley MD [address] [place] [address] PCP - General Family Medicine 10/27/18 documented as of this encounter
--- OUTSIDE RECORDS SUMMARY | 2025-07-15 11:20 | XMS_ITS | Encounter Summary ---
Author Organization [facility] Address [address] [place] [address] 7 [place] [address] Care Team Providers Care Rug Measurer Name Role Phone Sugey Mosley MD Primary Care Provider +1- [phone] Encounter Details Date Type Department Care Team (Late st Contact Info) Description 10/31/2022 Abstract [facility] MEDICINE [address] [place] [phone] Sugey Mosley MD [address] [place] [address] [phone] Social History Tobacco Use Types Packs/Day Years [...] 07/18/2025 9:15 AM EDT Office Visit [facility] MEDICINE [address] [place] [address] [phone] Sugey Mosley MD [address] [place] [phone] documented as of this encounter Procedures Procedure Name Priority Date/Time Associated Diagnosis Comments CBC AND DIFFERENTIAL - WAM AND NON-WAM Routine 07/19/2022 HIV-1 ANTIBODY, EIA Routine 07/19/2022 TSH Routine 07/19/2022 HEMOGLOBIN A1C Routine 07/19/2022 HEPATIC FUNCTION PANEL Routine 07/19/2022 LIPID PANEL, STANDARD Routine 07/19/2022 BASIC METABOLIC PANEL Routine 07/19/2022 documented in this encounter Results * HIV-1 antibody, EIA (07/19/2022) Pathologist [facility] External HIV-1 Antibody None Detected Blood Venous blood specimen / Unknown Result [facility] MD LAB BLOOD ORDERABLES Annie l Result * TSH (07/19/2022) Pathologist [facility] TSH 5.31 4.00 - 5.40 mIU/L Blood Venous blood specimen / Unknown Result [facility] MD LAB BLOOD ORDERABLES Annie l Result * Hemoglobin A1c (07/19/2022) Pathologist [facility] Hemoglobin A1C 5.3 4.0 - 6.0 % Blood Venous blood specimen / Unknown Result [facility] MD LAB BLOOD ORDERABLES Annie l Result * Hepatic Function Panel (07/19/2022) Pathologist [facility] Alkaline Phosphatase 65 U/L ALT (SGPT) 21 7 - 35 U/L AST 26 13 - 35 U/L Total Bilirubin 0.6 0.1 - 1.4 mg/dL Blood Venous blood specimen / Unknown Result [facility] LAB BLOOD ORDERABLES Annie l Result * (ABNORMAL) Lipid Panel, Standard (07/19/2022) Pathologist [facility] Triglycerides 233(A) 40 - 160 mg/dL Cholesterol 237(A) 0 - 200 mg/dL HDL Cholesterol 36 35 - 70 mg/dL LDL Cholesterol 162 mg/dL Blood Venous blood specimen / Unknown [facility] Provider LAB BLOOD ORDERABLES Annie l Result * Basic Metabolic Panel (07/19/2022) Glucose 90 mg/dL BUN 14 4 - 21 mg/dL Creatinine 0.8 0.5 - 1.1 mg/dL Potassium 4.3 3.4 - 5.5 mmol/L Sodium 137 137 - 147 mmol/L Blood Venous blood specimen / Unknown Result [facility] Provider LAB BLOOD ORDERABLES Annie l Result * CBC and differential (07/19/2022) Hemoglobin 13.4 12.0 - 16.0 g/dL Hematocrit 40 36 - 46 % Platelets 363 150 - 399 10*3/uL Auto WBC 8.1 3.3 - 10.0 10*3/uL Blood Venous blood specimen / Unknown Result [facility] Provider LAB BLOOD ORDERABLES Annie l Result documented in this encounter Visit Diagnoses Not on filedocumented in this encounter Care Teams Rug Measurer Relationship Specialty Start Date End Date Sugey Mosley MD [address] [place] [phone] PCP - General Family Medicine 10/27/18 documented as of this encounter
--- OUTSIDE RECORDS SUMMARY | 2025-07-15 11:20 | XMS_ITS | Clinical Summary ---
Author Organization [employer] Address [address] [facility] 7t [place] [address] Care Team Providers Care Showcase Maker Name Role Phone Sugey Mosley MD Primary Care Provider +1- [phone] Allergies Active Allergy Reactions Criticality Noted Date [...] due after 07/19/2023 -eye care facilitated by [facility] -dental home is [facility] Chest discomfort 02/27/2023 Overview (02/27/2023): Pain [...] Encounters Date Type Department Care Team Description 07/13/2025 Results Follow-Up [facility] MEDICINE [address] [place] [address] Sugey Mosley MD Hepatic Function Panel, Lipid Panel, Standard, Basic Metabolic Panel, Additional followed-up results: 3 07/11/2025 Patient Outreach [facility] MEDICINE [address] [place] [address] Sugey Mosley MD Pre-visit Planning (SDOH screening negative and tobacco screening negative) 07/06/2025 Telephone [facility] [address] [place] [address] Sugey Mosley MD Lab Orders 07/06/2025 Telephone [facility] [address] [place] [address] Sugey Mosley MD 06/13/2025 3:00 PM EDT Office Visit [facility] OPTOMETRY [address] [place] [address] Wilbert, Omayra, OD Nevus of choroid of [...] Description 07/18/2025 9:15 AM EDT Office Visit [facility] MEDICINE [address] [place], [place] [phone] Sugey Mosley MD [address] [place] [address] Health Maintenance Due Date Last Done Comments CT Colonography 1980 Colonoscopy 1980 Colorectal Cancer Screening 1980 FIT DNA/Cologuard 1980 FIT 1980 FOBT 1980 Sigmoidoscopy 1980 Disability Screening 1980 Alcohol/Substance Use Screening 1992 Family Planning (PISQ) 1995 HPV Vaccines (1 - 3-dose series) 1995 Hepatitis B Vaccines (2 of 3 - Hep B Twinrix 3-dose series) 08/13/2016 07/16/2016 Depression Screening 02/28/2024 02/27/2023, 02/28/20 DTaP/Tdap/Td Vaccines (2 - Td or Tdap) 04/27/2024 04/27/2014 COVID-19 Vaccine ( season) 2025 09/06/2022, 12/11/2021, 12/26/2020, Additional history [...] topic HIV Screening Completed 07/19/2022, 06/28, 04/01/2022 Hepatitis C Screening Completed 07/13/2025 HIB Vaccines Aged Out No longer eligi [...] CBC Routine 07/13/2025 11:45 AM EDT Lymphadenopathy HEPATITIS C AB W/REFL TO HCV RNA, QN, PCR Routine 07/13/2025 11:45 AM EDT Encounter for HCV screening test for low risk patient BASIC METABOLIC PANEL Routine 07/13/2025 11:45 AM [...] Vitamin D 25-OH Total 29.0(L) >30 ng/mL [facility] Comment: Health Based Reference Values*< 20 ng/mL [id number] ng/mL Insufficient> 30 ng/mL Sufficient*Minesh OLSON. N [...] Mosley MD LAB BLOOD ORDERABLES Final Result [facility] [address] [place] [phone] * TSH W/Reflex to FT4 (07/13/2025 11:45 AM EDT) TSH reflex Free T4 2.45 0.32 - 4.0 uIU/mL [facility] Blood Venous blood specimen / Unknown 07/13/2025 11:45 AM EDT 07/13/2025 1:16 PM EDT Sugey Mosley MD LAB BLOOD ORDERABLES Final Result Performing Organization Address City/[facility]/ZIP Co de Phone Number [facility] [address] [place] [phone] * Hepatitis C Antibody with Reflex to HCV, RNA, Quantitative, Real-Time PCR (07/13/2025 11:45 AM EDT) Pathologist [facility] Hepatitis C Antibody Nonreactive Nonreactive [facility] Comment:Antibodies to HCV no t detected; does not exclude early acuteHCV infection. Blood Venous blood specimen / Unknown 07/13/2025 11:45 AM EDT 07/13/2025 1:16 PM EDT Sugey Mosley MD LAB BLOOD ORDERABLES Final Result Performing Organization Address [facility] Co de Phone Number [facility] [address] [place] [phone] * (ABNORMAL) CBC (07/13/2025 11:45 AM EDT) Pathologist [facility] White Blood Count 6.9 4.8 - 10.8 X10*3/uL [facility] Red Blood Count 4.31 4.20 - 5.50 X10*6/uL [facility] Hemoglobin 11.4(L) 12.0 - 16.0 g/dl [facility] Hematocrit 36.4(L) 37.0 - 47.0 % [facility] Mean Corpuscular Volume 84.5 80.0 - 98.0 fL [facility] Mean Corpuscular Hemoglobin 26.5(L) 27.0 - 33.0 pg [facility] Mean Corpuscular HGB Conc 31.3 31.0 - 35.0 g/dl [facility] Red Cell Distribution Width 15.3 11.0 - 16.0 % [facility] Platelet Count 359 160 - 400 X10*3/uL [facility] Mean Platelet Volume 10.0 9.4 - 12.3 fL [facility] NRBC Pct Auto 0.0 0.0 - 0.2 /100WBC [facility] NRBC Abs Auto 0.000 0.0 - 0.012 X10*3/uL [facility] Blood Venous blood specimen / Unknown 07/13/2025 11:45 AM EDT 07/13/2025 1:16 PM EDT Sugey Mosley MD LAB BLOOD ORDERABLES Final Result Performing Organization Address City/[facility]/ZIP Co de Phone Number [facility] [address] [place] [address] [phone] * Hepatic Function Panel (07/13/2025 11:45 AM EDT) Bilirubin, Total 0.3 0.0 - 1.0 mg/dL [facility] Bilirubin, Direct 0.1 0.0 - 0.5 mg/dL [facility] Aspartate Amino Transferase 31 5 - 31 U/L [facility] Alanine Aminotransferase 22 0 - 31 U/L [facility] Total Protein 7.6 6.5 - 8.0 g/dL [facility] Albumin Level 4.3 3.5 - 5.0 g/dL [facility] Alkaline Phosphatase 81 39 - 117 U/L [facility] Blood Venous blood specimen / Unknown 07/13/2025 11:45 AM EDT 07/13/2025 1:16 PM EDT Sugey Mosley MD LAB BLOOD ORDERABLES Final Result Performing Organization Address City/[facility]/ZIP Co de Phone Number [facility] [address] [place] [phone] * (ABNORMAL) Lipid Panel, Standard (07/13/2025 11:45 AM EDT) Triglycerides 121 <150 mg/dL [facility] Comment:Desirable Triglyceri de: less than 150 mg/dLBorderline High Triglyceride 150-199 mg/dLHigh Triglyceride: 200-499 mg/dLVery High Triglyceride: greater than or equal to 5OO mg/dL Cholesterol 231(H) <200 mg/dL [facility] Comment:Desirable Cholestero l: less than 200 mg/dLBorderline High Cholesterol: 200-239 mg/dLHigh Cholesterol: greater than 239 mg/dL LDL Cholesterol Calculated 165(H) <100 mg/dL [facility] Comment:Desirable LDL: less than 100 mg/dLNear Optimal/Above Optimal LDL: 110- 129 mg/dLBorderline High LDL: 130-159 mg/dLHigh LDL: 160-189 mg/dLVery High LDL: greater than or equal to 190 mg/dL HDL Cholesterol 42 >40 mg/dL [facility] Comment:Desirable HDL: great er than 40 mg/dL Note: This HDL assay may give artificially low results in patients with liver disease. Blood Venous blood specimen / Unknown 07/13/2025 11:45 AM EDT 07/13/2025 1:16 PM EDT us Sugey Mosley MD LAB BLOOD ORDERABLES Final Result [facility] [address] [place] [phone] * (ABNORMAL) Basic Metabolic Panel (07/13/2025 11:45 AM EDT) Sodium 141 135 - 145 mmol/L [facility] Potassium 4.6 3.3 - 5.1 mmol/L [facility] Chloride 109(H) 96 - 108 mmol/L [facility] Carbon Dioxide 27 22 - 29 mmol/L [facility] Anion Gap 10(L) 12 - 20 [facility] Urea Nitrogen (BUN) 12 9 - 16 mg/dL [facility] Creatinine, Serum 0.70 0.5 - 1.4 mg/dL [facility] Estimated Glomerular Filt Rate >60 [facility] Comment:Chronic Kidney Disea se: Estimated GFR < 60 mL/min/1.27m7Fcztnt Kidney Disease: Estimated GFR < 15 mL/min/1.73m2 Glucose 98 60 - 115 mg/dL [facility] Calcium 9.5 8.4 - 10.2 mg/dL [facility] Blood Venous blood specimen / Unknown 07/13/2025 11:45 AM EDT 07/13/2025 1:16 PM EDT Sugey Mosley MD LAB BLOOD ORDERABLES Final Result [facility] [address] [place] [phone] * OCT, Retina - OU - [...] is necessary. Will monitor in 1 year. Omayra Atkins OD OPHTH TOMOGRAPHY Final Result * BI Mammogram Screening Tomosynthesis Bilateral (08/21/2024 10:15 AM EDT) Anatomical Region Laterality Modality Breast Bilateral Mammography 08/21/2024 10:1 5 AM EDT Narrative 08/31/2024 8:50 AM EST [facility] [address] [place] [address] Mammography Report Signed Patient: Citlaly Rodriges MR#: [id number] : 1980 Acct:[id number] Age/Sex: 44 / F ADM Date: 08/21/24 Loc: HO.MAMMO Attending Dr: Sugey Mosley MD Ordering Physician: Sugey Mosley MD Results: 1N egative Date of Service: 08/21/24 Follow Up: 1 Year From Orig inal Mammogram Procedure(s): MM tomosynthesis screening BI Accession Number(s): [id number] cc: Sugey Mosley MD EXAMINATION: MM SCREENING [...] 08/31/24 0848 DD/ 1015 TD/TT: 08/21/24 1027 Cia Agent: Procedure Note Donotuseinterpreter, Image - 08/31/2024 [facility] [address] [place] [address] Mammography Report Signed Patient: Citlaly Rodriges#: [id number] : 1980Acct:[id number] Age/Sex: 44 / FADM Date: 08/21/24 Loc: MAMMO Attending Dr: Sugey Mosley MD Ordering Physician: Sugey Mosley MDResults: 1N egative Date of Service: 08/21/24Follow Up: 1 Year From Orig inal Mammogram Procedure(s): MM tomosynthesis screening BI Accession Number(s): [id number] cc: Sugey Mosley MD EXAMINATION: MM SCREENING [...] Mary Lou Becker DO 08/31/2024 08:48 AM [facility] Dictated By: Mary Lou Becker DO Signed By: <Electronically signed by Mary Lou Becker DO in OV> 08/31/24 0848 DD/ 1015 TD/TT: 08/21/24 1027 Cia Agent: Sugey Mosley MD IMG BI PROCEDURES Final Re sult * HPV High Risk PCR (07/19/2022 12:00 AM EDT) Swab Cervical swab / Unknown Historical Provider LAB MICROBIOLOGY - GENERA L ORDERABLES Final Result [facility] [address] [place] [phone] * HIV-1 antibody, EIA (07/19/2022) External HIV-1 Antibody None Detected Blood Venous blood specimen / Unknown Historical Provider LAB BLOOD ORDERABLES Annie l Result * Pap Smear (07/19/2022 12:00 AM EDT) Swab us Sugey Mosley MD LAB CYTOLOGY ORDERABLES Fi nal Result [facility] [address] [place], [place] [phone] from Last 3 Months or Most Recently Relevant to Health Maintenance Insurance [facility] Care Teams Showcase Maker Relationship Specialty Start Date End Date Dimitri, MD Sugey [address] [place] [address] PCP - General Family Medicine 10/27/18
--- OUTSIDE RECORDS SUMMARY | 2025-07-15 11:20 | XMS_ITS | Encounter Summary ---
Author Organization [facility] Address [address] [place] [address] 7 [place] [address] Care Team Providers Care Student Services Dean Name Role Phone Sugey Mosley MD Primary Care Provider +1- [phone] Encounter Details Date Type Department Care Team (Late st Contact Info) Description 12/18/2022 Orders Only [facility] MEDICINE [address] [place] [phone] Kenzie Haji MD [address] [place] [address] [phone] Vision problem (Primary Dx) Social History Tobacco [...] Description 07/18/2025 9:15 AM EDT Office Visit [facility] MEDICINE [address] [place] [address] [phone] Sugey Mosley MD [address] [place] [address] [phone] documented as of this encounter Visit Diagnoses Diagnosis Vision problem- Primary Problems with sight Encounter for HCV screening test for low risk patient- Primary Dyslipidemia Other and unspecified hyperlipidemia Lymphadenopathy Enlargement of lymph nodes Elevated TSH Other abnormal blood chemistry Vitamin D deficiency documented in this encounter Care Teams Student Services Dean Relationship Specialty Start Date End Date Sugey Mosley MD [address] [place] [phone] PCP - General Family Medicine 10/27/18 documented as of this encounter
--- OUTSIDE RECORDS SUMMARY | 2025-07-15 11:20 | XMS_ITS | Encounter Summary ---
Author Organization [employer] Address [address] [facility] 7t [place] [address] Care Team Providers Care Brand Executive Name Role Phone Sugey Mosley MD Primary Care Provider +1- [phone] Encounter Details Date Type Department Care Team (Late st Contact Info) Description 12/07/2024 Orders Only [facility] MEDICINE [address] [place] [address] Sugey Mosley MD [address] [place] [address] Social History Tobacco Use Types Packs/Day Years [...] Description 07/18/2025 9:15 AM EDT Office Visit [facility] MEDICINE [address] [place] [address] Sugey Mosley MD [address] [place] [address] documented as of this encounter Visit Diagnoses Not on filedocumented in this encounter Additional Health Concerns Assessment Noted Time PHQ-9 Depression Total Score: 0 02/28/20 23 9:55 AM EDT documented as of this encounter Care Teams Brand Executive Relationship Specialty Start Date End Date Sugey Mosley MD [address] [place] [address] PCP - General Family Medicine 10/27/18 documented as of this encounter
--- OUTSIDE RECORDS SUMMARY | 2025-07-15 11:20 | XMS_ITS | Encounter Summary ---
Author Organization [employer] Address [address] [facility] 7 [place] [address] Care Team Providers Care Finishing Area Operator Name Role Phone Sugey Mosley MD Primary Care Provider [phone]- [phone] Reason for Visit * Reason Comments Pre-visit Planning SDOH screening negat rene and tobacco screening negative Encounter Details Date Type Department Care Team ([facility] st Contact Info) Description 07/11/2025 Patient Outreach [facility] [address] [place] [address] Sugey Mosley MD [address] [place] [address] Pre-visit Planning (SDOH screening negative and tobacco [...] Description 07/18/2025 9:15 AM EDT Office Visit [facility] [address] [place] [id number] Sugey Mosley MD [address] [place] [phone] documented as of this encounter Visit Diagnoses Not on filedocumented in this encounter Additional Health Concerns Assessment Noted Time PHQ-9 Depression Total Score: 0 02/28/20 23 9:55 AM EDT documented as of this encounter Care Teams Finishing Area Operator Relationship Specialty Start Date End Date Sugey Mosley MD [address] [place] [id number] PCP - General Family Medicine 10/27/18 documented as of this encounter
--- OUTSIDE RECORDS SUMMARY | 2025-07-15 11:20 | XMS_ITS | Encounter Summary ---
Author Organization [employer] [facility] Address [address] [place] [address] 7 [place] [address] Care Team Providers Care Passenger Representative Name Role Phone Sugey Mosley MD Primary Care Provider +1- [phone] Encounter Details Date Type Department Care Team (Late st Contact Info) Description 07/28/2023 Abstract [facility] [address] [place] [address] [phone] Sugey Mosley MD [address] [place] [address] [phone] Preventative health care Social History Tobacco Use [...] Description 07/18/2025 9:15 AM EDT Office Visit [facility] [address] [place] [address] [phone] Sugey Mosley MD [address] [place] [address] [phone] documented as of this encounter Visit Diagnoses [...] documented as of this encounter Care Teams Passenger Representative Relationship Specialty Start Date End Date Sugey Mosley MD [address] [place] [id number] PCP - General Family Medicine 10/27/18 documented as of this encounter
--- OUTSIDE RECORDS SUMMARY | 2025-07-15 11:20 | XMS_ITS | Encounter Summary ---
Author Organization [employer] Address [address] [place] [address] 7 [place] [address] Care Team Providers Care Slide Fastener Chain Assembler Name Role Phone Sugey Mosley MD Primary Care Provider +1- [phone] Reason for Visit * Reason Onset Date Comments Appointment Request 02/04/2023 Encounter Details Date Type Department Care Team (Late st Contact Info) Description 02/04/2023 Telephone [facility] [address] [place] [address] Sugey Mosley MD [address] [place] [address] Appointment Request Social History Tobacco Use Types [...] per [place] ) Please contact pt at [phone] documented in this encounter Plan of Treatment Upcoming Encounters Date Type Department Care Team (Late st Contact Info) Description 07/18/2025 9:15 AM EDT Office Visit [facility] [address] [place] [address] Sugey Mosley MD [address] [place] [address] documented as of this encounter Visit Diagnoses Not on filedocumented in this encounter Care Teams Slide Fastener Chain Assembler Relationship Specialty Start Date End Date Sugey Mosley MD [address] [place] [address] PCP - General Family Medicine 10/27/18 documented as of this encounter
--- OUTSIDE RECORDS SUMMARY | 2025-07-15 11:20 | XMS_ITS | Encounter Summary ---
Author Organization [employer] Address [address] 7 [place] [address] Care Team Providers Care Sign Language Translator Name Role Phone Sugey Mosley MD Primary Care Provider +1- [phone] Reason for Visit * Reason Onset Date Comments Lab Results 07/13/2025 Encounter Details Date Type Department Care Team ([facility] st Contact Info) Description 07/13/2025 Results Follow-Up [facility] [address] [place] [address] Sugey Mosley MD [address] [place] [address] Hepatic Function Panel, Lipid Panel, Standard, Basic Metabolic Panel, Additional followed-up results: 3 Social History Tobacco Use Types Packs/Day Years [...] encounter Miscellaneous Notes * Telephone Encounter - Susanna Kelly RN - 07/13/2025 3:14 PM EDT Telephone call to pt, reviewed labs per provider note below: low Vitamin D, mild anemia, and high cholesterol. Advised her that PCP plans to discuss in more detail with her at her 07/18/25 appt and that she ordered additional non fasting labs. Pt verbalized understanding, states she will complete these this week. No further questions. * Telephone Encounter - Susanna Kelly RN - 07/13/2025 3:10 PM EDT ----- Message from Sugey Mosley MD sent at 07/13/2025 2:51 PM EDT ----- Please let Crystal know labs were good. Chol was high and vit D is low and we will discuss but she is a bit anemia which is new. I am sending a lab order for causes of anemia if she can get them done before the visit that would be great but if not she can get them the day I see her. She does NOT need to fast for the labs. Thank you. ----- Message ----- From: Interface, Lab Results In Sent: 07/13/2025 1:30 PM EDT To: Sugey Mosley MD documented in this encounter Plan of Treatment Upcoming Encounters Date Type Department Care Team (Late st Contact Info) Description 07/18/2025 9:15 AM EDT Office Visit [facility] [address] [place] [address] Sugey Mosley MD [address] [place] [address] Scheduled Orders Name Type Priority Associated Diagnoses Orde r Schedule CBC auto differential Lab Routine Anemia, unspecified type Expected: 07/13/2025 (Approximate), Expires: 07/13/2026 Ferritin Lab Routine Anemia, unspecified type Expected: 07/13/2025, Expires: 07/13/2026 Iron And Total Iron Binding Capacity Lab Routine Anemia, unspecified type Expected: 07/13/2025, Expires: 07/13/2026 Vitamin B12 (Cobalamin) and Folate Panel, Serum Lab Routine Anemia, unspecified type Expected: 07/13/2025, Expires: 07/13/2026 documented as of this encounter Visit Diagnoses Diagnosis Anemia, unspecified type- Primary Encounter for HCV screening test for low risk patient- Primary Dyslipidemia Other and unspecified hyperlipidemia Lymphadenopathy Enlargement of lymph nodes Elevated TSH Other abnormal blood chemistry Vitamin D deficiency documented in this encounter Additional Health Concerns Assessment Noted Time PHQ-9 Depression Total Score: 0 02/28/20 23 9:55 AM EDT documented as of this encounter Care Teams Sign Language Translator Relationship Specialty Start Date End Date Sugey Mosley MD [address] [place] [id number] PCP - General Family Medicine 10/27/18 documented as of this encounter
[2025-07-15 13:41] LABS: MANUAL DIFF FLAG NO
[2025-07-15 13:58] LABS: Hematocrit 36.2 % (37.0-47.0); Hemoglobin 11.5 g/dl (12.0-16.0); Imm Gran Abs Auto 0.02 X10*3/uL (0.00-0.03); Imm Gran Pct Auto 0.3 % (0.0-0.4); Lymphocytes Absolute Auto 1.9 X10*3/uL (1.2-4.9); Mean Corpuscular HGB Conc 31.8 g/dl (31.0-35.0); Mean Corpuscular Hemoglobin 26.6 pg (27.0-33.0); Mean Corpuscular Volume 83.6 fL (80.0-98.0); NRBC Abs Auto 0.000 X10*3/uL (0.0-0.012); NRBC Pct Auto 0.0 /100WBC (0.0-0.2); Platelet Count 410 X10*3/uL (160-400); Red Blood Count 4.33 X10*6/uL (4.20-5.50); White Blood Count 7.3 X10*3/uL (4.8-10.8)
[2025-07-15 14:18] LABS: Iron 55 mcg/dL (30-160); Percent Iron Saturation 15 % (15-50); Total Iron Binding Capacity 371 mcg/dL (228-428); Unsaturated Iron Binding 316 ug/dL
[2025-07-15 14:26] LABS: Ferritin 12 ng/mL (10-250)
[2025-07-15 14:36] LABS: Folate 4.7 ng/mL (> or = 4.0); Vitamin B12 302 pg/mL (200-900)
== END 2025-07-15 10:43 | disposition home or self-care (01) ==
LOC: HO.HHCL 10:42
PROVIDERS: PCP Family Medicine; Visit Provider Family Medicine
DX: D64.9 Anemia, unspecified (principal)
CPT/HCPCS: 36415; 82607; 82728; 82746; 83540; 85025